=== PATIENT | male | born 1950 | race Caucasian/White ===

== ENCOUNTER 2020-09-16 11:37 | Emergency (ER) | payer MEDICARE ==
[~2020-09-16] VITALS: Ht 175.3 cm; Wt 95.2 kg
[2020-09-16] MEDS ORDERED: LIPITOR80 MG PO (12:21)
[2020-09-16] MEDS ORDERED: AMLODIPINE BESYL5 MG PO (12:21)
[2020-09-16] MEDS ORDERED: PLAVIX75 MG PO (12:21)
[2020-09-16] MEDS ORDERED: KAPSPARGO SPRIN50 MG PO (12:23)
[2020-09-16] MEDS ORDERED: ASPI81CH PO (12:24)
[2020-09-16] MEDS ORDERED: Veetids 500500 MG PO (12:32)
[2020-09-16] MEDS ORDERED: HYDR1TAB94 PO (12:32)
== END 2020-09-16 12:44 | disposition home or self-care (01) ==
LOC: ER 11:37
DX: K04.7 Periapical abscess without sinus (principal); Z79.02 Long term (current) use of antithrombotics/antiplatelets; Z79.82 Long term (current) use of aspirin; Z79.899 Other long term (current) drug therapy
CPT/HCPCS: 99282

== ENCOUNTER 2022-05-10 17:06 | Emergency (ER) | payer MEDICARE ==
[~2022-05-10] VITALS: Ht 177.8 cm; Wt 99.8 kg
[~2022-05-10 17:06] MED LIST: AMLODIPINE BESYL5 MG PO; ASPI81CH PO; HYDR1TAB94 PO; KAPSPARGO SPRIN50 MG PO; LIPITOR80 MG PO; PLAVIX75 MG PO; Veetids 500500 MG PO
[2022-05-10] MEDS ORDERED: DONEPEZIL HCL10 M1 PO (19:13)
[2022-05-10] MEDS ORDERED: ESCI10 PO (19:14)
[2022-05-10 19:21] LABS: BASOPHILS ABSOLUTE AUTO 0.05 K/mm3 (0.00-0.23); BASOPHILS PERCENT AUTO 1 % (0-2); EOSINOPHILS ABSOLUTE AUTO 0.06 K/mm3 (0.00-0.68); EOSINOPHILS PERCENT AUTO 1 % (0-6); Hematocrit 48.5 % (37.0-53.0); Hemoglobin 17.1 g/dL (13.5-17.5); IMMATURE GRAN ABSOLUTE AUTO 0.02 K/mm3 (0.00-0.10); IMMATURE GRAN PERCENT AUTO 0 % (0-1); LYMPHOCYTES ABSOLUTE AUTO 2.58 K/mm3 (0.84-5.20); LYMPHOCYTES PERCENT AUTO 29 % (21-46); MONOCYTES PERCENT AUTO 8 % (4-13); Mean Corpuscular HGB Conc 35.3 g/dL (31.5-36.5); Mean Corpuscular Volume 96 fL (80-100); Mean Platelet Volume 8.5 fL (9.1-12.4); NEUTROPHILS ABSOLUTE AUTO 5.62 K/mm3 (1.96-9.15); NEUTROPHILS PERCENT AUTO 62 % (41-73); Platelet Count 215 K/mm3 (150-400); RDW Coefficient Variation 12.3 % (11.7-14.2); RDW Standard Deviation 44.3 fL (35.1-46.3); Red Blood Cell Count 5.03 M/mm3 (4.30-5.90); White Blood Cell Count 9.03 K/mm3 (4.00-11.30)
[2022-05-10 19:43] LABS: Albumin, Blood 4.1 g/dL (3.4-5.0); Albumin/Globulin Ratio 1.1 (0.8-1.8); Bilirubin, Total 0.5 mg/dL (0.1-1.0); Bun/Creatinine Ratio 17.1 (12.0-20.0); Creatinine, Blood 0.58 mg/dL (0.60-1.20); Globulin, Blood 3.8 g/dL (2.2-4.0); Magnesium, Blood 2.2 mg/dL (1.6-2.4); Potassium, Blood 4.1 mmol/L (3.5-5.5); Total Protein, Blood 7.9 g/dL (6.4-8.2)
== END 2022-05-10 20:20 | disposition left against medical advice (07) ==
LOC: ER 17:06
PROVIDERS: Student in an Organized Health Care Education/Training Program
DX: R55 Syncope and collapse (principal); F17.200 Nicotine dependence, unspecified, uncomplicated; F19.10 Other psychoactive substance abuse, uncomplicated; Z91.018 Allergy to other foods; Z79.899 Other long term (current) drug therapy; Z79.82 Long term (current) use of aspirin; Z53.29 Procedure and treatment not carried out because of patient's decision for other reasons
CPT/HCPCS: 71045; 80053; 83735; 83880; 84484; 85025; J7030

== ENCOUNTER 2022-07-01 23:24 | Emergency (ER) | payer MEDICARE ==
[~2022-07-01] VITALS: Ht 175.3 cm; Wt 99.8 kg
[~2022-07-01 23:24] MED LIST changes: +DONEPEZIL HCL10 M1 PO; +ESCI10 PO
[2022-07-01] MEDS ORDERED: Flomax0.4 MG (23:40)
[2022-07-02] LABS: BASOPHILS ABSOLUTE AUTO 0.03 K/mm3 (0.00-0.23); BASOPHILS PERCENT AUTO 0 % (0-2); EOSINOPHILS ABSOLUTE AUTO 0.03 K/mm3 (0.00-0.68); EOSINOPHILS PERCENT AUTO 0 % (0-6); Hematocrit 44.3 % (37.0-53.0); Hemoglobin 15.8 g/dL (13.5-17.5); IMMATURE GRAN ABSOLUTE AUTO 0.04 K/mm3 (0.00-0.10); IMMATURE GRAN PERCENT AUTO 1 % (0-1); LYMPHOCYTES PERCENT AUTO 15 % (21-46); MONOCYTES ABSOLUTE AUTO 0.58 K/mm3 (0.16-1.47); MONOCYTES PERCENT AUTO 7 % (4-13); Mean Corpuscular HGB Conc 35.7 g/dL (31.5-36.5); Mean Corpuscular Volume 95 fL (80-100); Mean Platelet Volume 8.3 fL (9.1-12.4); NEUTROPHILS ABSOLUTE AUTO 6.18 K/mm3 (1.96-9.15); NEUTROPHILS PERCENT AUTO 77 % (41-73); Platelet Count 198 K/mm3 (150-400); RDW Coefficient Variation 12.6 % (11.7-14.2); RDW Standard Deviation 44.8 fL (35.1-46.3); Red Blood Cell Count 4.65 M/mm3 (4.30-5.90); White Blood Cell Count 8.06 K/mm3 (4.00-11.30)
[2022-07-02 00:12] LABS: Albumin, Blood 3.6 g/dL (3.4-5.0); Bilirubin, Total 0.3 mg/dL (0.1-1.0); Bun/Creatinine Ratio 22.3 (12.0-20.0); Calcium, Blood 8.8 mg/dL (8.5-10.1); Creatinine, Blood 0.58 mg/dL (0.60-1.20); Globulin, Blood 3.7 g/dL (2.2-4.0); Potassium, Blood 3.5 mmol/L (3.5-5.5); Total Protein, Blood 7.3 g/dL (6.4-8.2)
== END 2022-07-02 03:58 | disposition home or self-care (01) ==
LOC: ER 23:24
PROVIDERS: Student in an Organized Health Care Education/Training Program
DX: R53.1 Weakness (principal); I25.2 Old myocardial infarction; I10 Essential (primary) hypertension; F17.210 Nicotine dependence, cigarettes, uncomplicated; Z91.018 Allergy to other foods; Z79.82 Long term (current) use of aspirin; Z79.899 Other long term (current) drug therapy; Z72.89 Other problems related to lifestyle
CPT/HCPCS: 71045; 80053; 85025; 93005; 93010; 99285-25

== ENCOUNTER 2022-11-09 08:31 | Emergency (ER) | payer MEDICARE ==
[~2022-11-09] VITALS: Ht 177.8 cm; Wt 90.7 kg
[~2022-11-09 08:31] MED LIST changes: +Flomax0.4 MG
[2022-11-09] MEDS ORDERED: CEPH500 PO (08:45)
[2022-11-09] MEDS ORDERED: Norco 5-325 Ta1 EACH PO (13:37)
== END 2022-11-09 13:12 | disposition home or self-care (01) ==
LOC: ER 08:31
DX: M79.661 Pain in right lower leg (principal); W18.30XA Fall on same level, unspecified, initial encounter; I73.9 Peripheral vascular disease, unspecified; I10 Essential (primary) hypertension; F17.210 Nicotine dependence, cigarettes, uncomplicated; Z91.018 Allergy to other foods; Z79.899 Other long term (current) drug therapy; Z79.82 Long term (current) use of aspirin
CPT/HCPCS: 73590; 73630; 93925; 93970; A9270

== ENCOUNTER 2023-09-18 12:07 | Inpatient (IN) | payer MEDICARE ==
[~2023-09-18] VITALS: Ht 175.3 cm; Wt 85.8 kg
[~2023-09-18 12:07] MED LIST changes: +CEPH500 PO; +Celexa10 MG PO; -ESCI10 PO; +Norco 5-325 Ta1 EACH PO
[2023-09-18 12:31] LABS: BASOPHILS ABSOLUTE AUTO 0.05 K/mm3 (0.00-0.23); BASOPHILS PERCENT AUTO 1 % (0-2); EOSINOPHILS ABSOLUTE AUTO 0.21 K/mm3 (0.00-0.68); EOSINOPHILS PERCENT AUTO 3 % (0-6); Hematocrit 47.8 % (37.0-53.0); Hemoglobin 17.2 g/dL (13.5-17.5); IMMATURE GRAN ABSOLUTE AUTO 0.02 K/mm3 (0.00-0.10); IMMATURE GRAN PERCENT AUTO 0 % (0-1); LYMPHOCYTES ABSOLUTE AUTO 3.29 K/mm3 (0.84-5.20); LYMPHOCYTES PERCENT AUTO 41 % (21-46); MONOCYTES ABSOLUTE AUTO 0.82 K/mm3 (0.16-1.47); MONOCYTES PERCENT AUTO 10 % (4-13); Mean Corpuscular HGB 33.7 pg (26.0-34.0); Mean Corpuscular Volume 94 fL (80-100); Mean Platelet Volume 9.8 fL (9.1-12.4); NEUTROPHILS ABSOLUTE AUTO 3.63 K/mm3 (1.96-9.15); NEUTROPHILS PERCENT AUTO 45 % (41-73); Platelet Count 259 K/mm3 (150-400); RDW Coefficient Variation 13.4 % (11.7-14.2); RDW Standard Deviation 46.1 fL (35.1-46.3); Red Blood Cell Count 5.11 M/mm3 (4.30-5.90); White Blood Cell Count 8.02 K/mm3 (4.00-11.30)
[2023-09-18 12:33] LABS: Base Excess Venous -0.6 mmol/L; Bicarbonate Venous 23.7 mmol/L (24.0-30.0); PCO2 Venous 42.8 mmHg (38-42); pH Blood Venous 7.37 (7.34-7.37)
[2023-09-18 13:23] LABS: Albumin, Blood 3.8 g/dL (3.4-5.0); Bilirubin, Total 0.5 mg/dL (0.1-1.0); Bun/Creatinine Ratio 13.5 (12.0-20.0); Calcium, Blood 8.6 mg/dL (8.5-10.1); Creatinine, Blood 0.59 mg/dL (0.60-1.20); Globulin, Blood 3.9 g/dL (2.2-4.0); Total Protein, Blood 7.7 g/dL (6.4-8.2)
[2023-09-18] MEDS ORDERED: OMEP20ER PO (13:32)
[2023-09-18] MEDS ORDERED: ELIQUIS5 M3 PO (13:32)
[2023-09-19] VITALS (7 sets, daily range): BP systolic 131–154; BP diastolic 72–83
[2023-09-19] MEDS ORDERED: IBUP800 PO (00:37)
[2023-09-19] MEDS ORDERED: OXYC5 PO (00:37)
[2023-09-19] MEDS ORDERED: TAMS.4ER PO (00:38)
[2023-09-19 04:44] LABS: Base Excess Venous 1.3 mmol/L; Bicarbonate Venous 25.3 mmol/L (24.0-30.0); PCO2 Venous 39.1 mmHg (38-42); pH Blood Venous 7.43 (7.34-7.37)
[2023-09-19 04:54] LABS: BASOPHILS ABSOLUTE AUTO 0.01 K/mm3 (0.00-0.23); BASOPHILS PERCENT AUTO 0 % (0-2); EOSINOPHILS PERCENT AUTO 0 % (0-6); Hematocrit 48.1 % (37.0-53.0); Hemoglobin 16.7 g/dL (13.5-17.5); IMMATURE GRAN ABSOLUTE AUTO 0.09 K/mm3 (0.00-0.10); IMMATURE GRAN PERCENT AUTO 1 % (0-1); LYMPHOCYTES ABSOLUTE AUTO 0.77 K/mm3 (0.84-5.20); LYMPHOCYTES PERCENT AUTO 6 % (21-46); MONOCYTES ABSOLUTE AUTO 0.21 K/mm3 (0.16-1.47); MONOCYTES PERCENT AUTO 2 % (4-13); Mean Corpuscular HGB 32.4 pg (26.0-34.0); Mean Corpuscular HGB Conc 34.7 g/dL (31.5-36.5); Mean Corpuscular Volume 93 fL (80-100); Mean Platelet Volume 9.1 fL (9.1-12.4); NEUTROPHILS ABSOLUTE AUTO 12.35 K/mm3 (1.96-9.15); NEUTROPHILS PERCENT AUTO 92 % (41-73); Platelet Count 225 K/mm3 (150-400); RDW Coefficient Variation 13.4 % (11.7-14.2); RDW Standard Deviation 46.5 fL (35.1-46.3); Red Blood Cell Count 5.15 M/mm3 (4.30-5.90); White Blood Cell Count 13.43 K/mm3 (4.00-11.30)
[2023-09-19 05:15] LABS: Bun/Creatinine Ratio 22.8 (12.0-20.0); Calcium, Blood 8.5 mg/dL (8.5-10.1); Creatinine, Blood 0.44 mg/dL (0.60-1.20); Potassium, Blood 4.1 mmol/L (3.5-5.5)
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
[2023-09-20 00:43] VITALS: BP 123/70
[2023-09-20 04:29] VITALS: BP 126/61
[2023-09-20 05:23] LABS: Bun/Creatinine Ratio 33.4 (12.0-20.0); Calcium, Blood 8.4 mg/dL (8.5-10.1); Creatinine, Blood 0.48 mg/dL (0.60-1.20)
[2023-09-20 07:05] VITALS: BP 147/82
--- NOTE | 2023-09-20 07:21 | NUR ---
SHIFT SUMMARY PATIENT ALERT AND ORIENTED X4. BEDREST. HAD NO COMPLAINTS OF PAIN OR SHORTNESS OF BREATH. TITRATED TO 2 LITERS O2 VIA NASAL CANULA. VITAL SIGNS STABLE, SINUS SUSHILA ON TELE. NO ACUTE ISSUES NOTED OVERNIGHT. WILL CONTINUE TO MONITOR. CALL LIGHT WITHIN REACH.
[2023-09-20 12:03] VITALS: BP 141/74
[2023-09-20 15:12] VITALS: BP 123/64
--- NOTE | 2023-09-20 17:17 | NUR ---
SHIFT SUMMARY: PT HAS BEEN A&Ox4, ANSWERING QUESTIONS APPROPRIATELY, ABLE TO MAKE NEEDS KNOWN. PT DENIES SOB, REPORTS MINIMALLY PRODUCTIVE COUGH OF CLEAR SPUTUM. O2 SATS 90-93% ON 1-2 L/MIN NC. SB/SR CONTINUES ON MONITOR, RATE MOSTLY IN 50s W/RANGE LOW HIGH 30s TO HIGH 60s. PT DENIES CHEST PAIN. WOUND CONSULTATION COMPLETED THIS SHIFT, DRESSING TO HEAD HAS BEEN CHANGED AND DRESSING APPLIED TO L HAND. AT THIS TIME, PT IS RESTING IN BED W/CALL MONITOR IN REACH. WILL CONTINUE TO MONITOR AND TREAT ACCORDINGLY UNTIL CHANGE OF SHIFT.
[2023-09-20 20:10] VITALS: BP 112/65
[2023-09-21 03:03] VITALS: BP 136/78
--- NOTE | 2023-09-21 06:44 | NUR ---
SHIFT SUMMARY PATIENT ALERT AND ORINETED X4. HAD NO COMPLAINTS OF PAIN OR SHORTNESS OF BREATH. ON 2 LITERS O2 VIA NC WITH SPO2 93. VITAL SIGNS STABLE, SINUS SUSHILA ON TELE. NO ACUTE ISSUES NOTED OVERNIGHT. WILL CONTINUE TO MONITOR. CALL LIGHT WITHIN REACH.
[2023-09-21 07:58] VITALS: BP 142/74
[2023-09-21 11:43] VITALS: BP 145/72
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
[2023-09-21 15:10] VITALS: BP 142/81
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
--- NOTE | 2023-09-21 16:00 | NUR ---
REPORT GIVEN TO ZENIA
--- NOTE | 2023-09-21 17:04 | NUR ---
PT RECIEVED FROM PCU. ALERT AND ORIENTED X4. 2.5L NC. SBA. ABLE TO MAKE NEEDS KNOWN. BED IS THE LOWEST POSITION WITH CALL LIGHT IN REACH.
[2023-09-21 20:01] VITALS: BP 106/88
--- NOTE | 2023-09-22 04:03 | NUR ---
SHIFT SUMMARY, PATIENT HAD NO ACUTE CHANGES. AXOX 4 AND SBA TO BR. ON 2L O2 NC AND RA BASELINE. POWERGLIDE AYANNA INTACT. PIV REMAINS INTACT. DENIES CHEST PAIN, SOB, AND N/V. VSS/AFEBRILE. COOPERATIVE WITH CARE. CALL LIGHT IN REACH. BED IN LOWEST POSITION. WILL CONTINUE TO MONITOR UNTIL DAY SHIFT NURSE ASSUMES CARE.
[2023-09-22 05:19] VITALS: BP 149/88
[2023-09-22 06:40] LABS: Hematocrit 46.7 % (37.0-53.0); Hemoglobin 16.1 g/dL (13.5-17.5); Mean Corpuscular HGB 32.7 pg (26.0-34.0); Mean Corpuscular HGB Conc 34.5 g/dL (31.5-36.5); Mean Corpuscular Volume 95 fL (80-100); Mean Platelet Volume 8.7 fL (9.1-12.4); Platelet Count 200 K/mm3 (150-400); RDW Coefficient Variation 13.3 % (11.7-14.2); RDW Standard Deviation 46.6 fL (35.1-46.3); Red Blood Cell Count 4.93 M/mm3 (4.30-5.90); White Blood Cell Count 10.31 K/mm3 (4.00-11.30)
[2023-09-22 07:07] LABS: Albumin, Blood 3.1 g/dL (3.4-5.0); Anion Gap 4 mmol/L (6-16); Blood Urea Nitrogen 17 mg/dL (8-24); CO2, Blood 28 mmol/L (21-32); Calcium, Blood 8.5 mg/dL (8.5-10.1); Chloride, Blood 106 mmol/L (98-108); Creatinine, Blood 0.59 mg/dL (0.60-1.20); Glomerular Filtration Rate 104 (60-); Glucose, Blood 85 mg/dL (70-99); Phosphorus, Blood 3.5 mg/dL (2.5-4.9); Potassium, Blood 3.8 mmol/L (3.5-5.5); Sodium, Blood 138 mmol/L (136-145)
[2023-09-22 07:44] VITALS: BP 146/91
[2023-09-22] MEDS ORDERED: GUAI600T33 PO (14:26)
[2023-09-22] MEDS ORDERED: PRED20 PO (14:26)
[2023-09-22] MEDS ORDERED: SPIRIVA RESPIMAT4 G3 INH (14:27)
[2023-09-22] MEDS ORDERED: ALBU90OI INH (14:30)
--- NOTE | 2023-09-22 17:50 | NUR ---
DISCHARGE. PT DISCHARGED HOME WITH HOME HEALTH. WOUND CARE COMPLETED THIS SHIFT. EDUCATED PT AND FRIEND ON DISCHARGE INSTRUCTIONS AND WOUND CARE INSTRUCTIONS. NO QUESITONS AT THIS TIME.
== END 2023-09-22 16:10 | disposition home health service (06) | DRG 917 ==
LOC: ER 12:07 → ERHOLD 12:08 → PCU 12:08 → EDBEDREQ 17:13 → PCU 23:43 → MEDS 09-21 16:25
PROVIDERS: Emergency Medicine; Internal Medicine; ADMIT Internal Medicine
PROC: 5A0935A Assistance with Respiratory Ventilation, Less than 24 Consecutive Hours, High Flow/Velocity Cannula (ICD-10-PCS; principal; 2023-09-18)
PROC: 5A09357 Assistance with Respiratory Ventilation, Less than 24 Consecutive Hours, Continuous Positive Airway Pressure (ICD-10-PCS; 2023-09-18)
DX: T59.811A Toxic effect of smoke, accidental (unintentional), initial encounter (principal); J96.21 Acute and chronic respiratory failure with hypoxia; J44.1 Chronic obstructive pulmonary disease with (acute) exacerbation; J70.5 Respiratory conditions due to smoke inhalation; I25.10 Atherosclerotic heart disease of native coronary artery without angina pectoris; F10.90 Alcohol use, unspecified, uncomplicated; I10 Essential (primary) hypertension; I73.9 Peripheral vascular disease, unspecified; E78.5 Hyperlipidemia, unspecified; R00.1 Bradycardia, unspecified; Y92.029 Unspecified place in mobile home as the place of occurrence of the external cause; Z79.02 Long term (current) use of antithrombotics/antiplatelets; Z79.82 Long term (current) use of aspirin; I25.2 Old myocardial infarction; Z86.73 Personal history of transient ischemic attack (TIA), and cerebral infarction without residual deficits
CPT/HCPCS: 71045; 80048; 80053; 80069; 82375; 82803; 82947; 85025; 85027; 93005; 93010; 94640; 94660; 94664; 94760; 94761; 94762; 96361; 96365; 96374; 96375; 96376; 99285-25; A9270; G0378; J2930; J3411; J7030; J7120; J7512

== ENCOUNTER → 2023-11-04 | Outpatient (CLI) | payer OTHER ==
[~2023-11-04] MED LIST changes: +ALBU90OI INH; +ELIQUIS5 M3 PO; +GUAI600T33 PO; +IBUP800 PO; +OMEP20ER PO; +OXYC5 PO; +PRED20 PO; +SPIRIVA RESPIMAT4 G3 INH; +TAMS.4ER PO
[2023-11-04 15:05] LABS: BASOPHILS ABSOLUTE AUTO 0.04 K/mm3 (0.00-0.23); BASOPHILS PERCENT AUTO 1 % (0-2); EOSINOPHILS ABSOLUTE AUTO 0.03 K/mm3 (0.00-0.68); EOSINOPHILS PERCENT AUTO 1 % (0-6); Hematocrit 44.4 % (37.0-53.0); Hemoglobin 15.4 g/dL (13.5-17.5); IMMATURE GRAN ABSOLUTE AUTO 0.01 K/mm3 (0.00-0.10); IMMATURE GRAN PERCENT AUTO 0 % (0-1); LYMPHOCYTES ABSOLUTE AUTO 1.84 K/mm3 (0.84-5.20); LYMPHOCYTES PERCENT AUTO 31 % (21-46); MONOCYTES ABSOLUTE AUTO 0.68 K/mm3 (0.16-1.47); MONOCYTES PERCENT AUTO 11 % (4-13); Mean Corpuscular HGB 33.3 pg (26.0-34.0); Mean Corpuscular HGB Conc 34.7 g/dL (31.5-36.5); Mean Corpuscular Volume 96 fL (80-100); NEUTROPHILS ABSOLUTE AUTO 3.37 K/mm3 (1.96-9.15); NEUTROPHILS PERCENT AUTO 56 % (41-73); Platelet Count 235 K/mm3 (150-400); RDW Coefficient Variation 14.7 % (11.7-14.2); RDW Standard Deviation 51.9 fL (35.1-46.3); Red Blood Cell Count 4.62 M/mm3 (4.30-5.90); White Blood Cell Count 5.97 K/mm3 (4.00-11.30)
[2023-11-04 15:19] LABS: CHOL/HDL RATIO 3.1; Cholesterol 212 mg/dL (50-200); HDL Cholesterol 68 mg/dL (>39); LDL/HDL RATIO 1.9; Low Density Lipoprotein Chol 131 mg/dL (0-110); Triglycerides 63 mg/dL (30-160); Very Low Density Lipoprot Chol 12 mg/dL (6-32)
[2023-11-05 10:02] LABS: A/G RATIO 1.5 (1.2-2.2); BILIRUBIN, TOTAL 0.5 mg/dL (0.0-1.2); CALCIUM, SERUM 9.3 mg/dL (8.6-10.2); CREATININE, SERUM 0.64 mg/dL (0.76-1.27); GLOBULIN, TOTAL 2.8 g/dL (1.5-4.5); POTASSIUM, SERUM 4.3 mmol/L (3.5-5.2)
== END ==
LOC: LAB SHORT 13:17 → LAB 13:17
PROVIDERS: Family Medicine
DX: I10 Essential (primary) hypertension (principal); N40.0 Benign prostatic hyperplasia without lower urinary tract symptoms
CPT/HCPCS: 36415; 80053; 80061; 84153; 84443; 85025

== ENCOUNTER → 2024-06-12 | Outpatient (CLI) | payer OTHER ==
[2024-06-12 19:18] LABS: BASOPHILS ABSOLUTE AUTO 0.04 K/mm3 (0.00-0.23); BASOPHILS PERCENT AUTO 1 % (0-2); EOSINOPHILS ABSOLUTE AUTO 0.04 K/mm3 (0.00-0.68); EOSINOPHILS PERCENT AUTO 1 % (0-6); Hematocrit 48.1 % (37.0-53.0); Hemoglobin 17.2 g/dL (13.5-17.5); IMMATURE GRAN ABSOLUTE AUTO 0.01 K/mm3 (0.00-0.10); IMMATURE GRAN PERCENT AUTO 0 % (0-1); LYMPHOCYTES ABSOLUTE AUTO 2.06 K/mm3 (0.84-5.20); LYMPHOCYTES PERCENT AUTO 29 % (21-46); MONOCYTES ABSOLUTE AUTO 0.93 K/mm3 (0.16-1.47); MONOCYTES PERCENT AUTO 13 % (4-13); Mean Corpuscular HGB 35.2 pg (26.0-34.0); Mean Corpuscular HGB Conc 35.8 g/dL (31.5-36.5); Mean Corpuscular Volume 99 fL (80-100); Mean Platelet Volume 9.4 fL (9.1-12.4); NEUTROPHILS ABSOLUTE AUTO 3.93 K/mm3 (1.96-9.15); NEUTROPHILS PERCENT AUTO 56 % (41-73); Platelet Count 216 K/mm3 (150-400); RDW Coefficient Variation 12.9 % (11.7-14.2); RDW Standard Deviation 46.4 fL (35.1-46.3); Red Blood Cell Count 4.88 M/mm3 (4.30-5.90); White Blood Cell Count 7.01 K/mm3 (4.00-11.30)
[2024-06-12 19:55] LABS: Alanine Aminotransfer (ALT/SGP 51 U/L (12-78); Albumin, Blood 3.8 g/dL (3.4-5.0); Alk Phos 42 U/L (50-136); Anion Gap 12 mmol/L (3-11); Aspartate Aminotrans (AST/SGOT 39 U/L (12-37); Bilirubin, Total 0.6 mg/dL (0.1-1.0); Blood Urea Nitrogen 13 mg/dL (8-24); Bun/Creatinine Ratio 20.3 (12.0-20.0); CHOL/HDL RATIO 4.1; CO2, Blood 25 mmol/L (21-32); Calcium, Blood 9.3 mg/dL (8.5-10.1); Chloride, Blood 106 mmol/L (98-108); Cholesterol 245 mg/dL (50-200); Creatinine, Blood 0.64 mg/dL (0.60-1.20); Globulin, Blood 3.9 g/dL (2.2-4.0); Glomerular Filtration Rate 101 (60-); Glucose, Blood 97 mg/dL (70-99); HDL Cholesterol 60 mg/dL (>39); LDL/HDL RATIO 2.7; Low Density Lipoprotein Chol 161 mg/dL (0-110); PSA, %Free 16.7 %; Potassium, Blood 4.2 mmol/L (3.5-5.5); Sodium, Blood 139 mmol/L (136-145); Total Protein, Blood 7.7 g/dL (6.4-8.2); Triglycerides 120 mg/dL (30-160); Very Low Density Lipoprot Chol 24 mg/dL (6-32)
== END ==
LOC: LAB 18:44 → LAB SHORT 18:44
PROVIDERS: Nurse Practitioner Family
DX: I10 Essential (primary) hypertension (principal); N40.1 Benign prostatic hyperplasia with lower urinary tract symptoms
CPT/HCPCS: 80053; 80061; 83880; 84153; 84154; 85025